=== PATIENT | female | born 1985 | race Caucasian/White ===

== ENCOUNTER 2016-08-20 17:52 | Observation (INO) ==
--- NOTE | 2016-08-20 18:39 | OB/GYN Progress Note ---
Date of Encounter: 08/20/16 Time of Encounter: 18:30 - Assessment and Plan (1) First in adolescent 16 years of age or older in third trimester Current Visit: Yes Status: Acute (2) 38 weeks gestation of Current Visit: Yes Status: Acute (3) False labor after 37 completed weeks of gestation Current Visit: Yes Status: Acute (4) Breech presentation Current Visit: Yes Status: Acute we will discharge home with labor precautions given. Follow-up for her scheduled in 1 week Qualifiers: Fetus number: single or unspecified fetus Qualified Code(s): O32.1XX0 - Maternal care for breech presentation, not applicable or unspecified Subjective - Subjective Interval history: Patient's is a 31-year-old 1 para 0 at 38-3/7 weeks who presented to labor and delivery with complaint of severe abdominal pain and contractions every 5-7 minutes. She had called me advise her to stay home until ligament uncomfortable. Patient was a scheduled section in 1 week due to transverse lie. Patient states the pain associated she went ahead and came on in. After arriving to labor and delivery her pain actually resolved and she was not feeling any contractions. heart tones were 140s reactive no contractions are seen on the monitor. On bimanual examination patient was noted to be fingertip but the presenting part was noted. Transabdominal ultrasound performed on the patient revealed the now to be in a breech presentation. All the pain the patient was having was probably the baby moving and reason why she is not having pain now she is not leaking any fluid denies any bleeding or vaginal discharge. Objective - Vital Signs Vital Signs: Intake and Output 08/20/16 08/20/16 08/20/16 07:59 15:59 23:59 Other: Weight 70 kg Patient Weight 08/20/16 23:59 Weight 70 kg - Exam FHR: category 1 FHR comments: heart tones 140s reactive no contraction seen Abdomen: Present: gravid Uterus: Present: firm Cervical dilation: fingertip Cervix effacement: 50 station: -3 Comments: Transabdominal ultrasound reveals the infant to be in a breech presentation
== END 2016-08-20 18:34 | disposition home or self-care (01) ==
LOC: 1NENULAB
PROVIDERS: ADMIT Obstetrics & Gynecology; ATTEND Obstetrics & Gynecology

== ENCOUNTER → 2016-08-22 20:12 | Observation (INO) ==
--- NOTE | 2016-08-22 19:51 | OB/GYN Progress Note ---
Date of Encounter: 08/22/16 Time of Encounter: 19:50 - Assessment and Plan (1) 38 weeks gestation of Current Visit: No Status: Acute (2) Breech presentation Current Visit: No Status: Acute Qualifiers: Fetus number: single or unspecified fetus Qualified Code(s): O32.1XX0 - Maternal care for breech presentation, not applicable or unspecified (3) First in adolescent 16 years of age or older in third trimester Current Visit: No Status: Acute Subjective - Subjective Interval history: Patient is a 31-year-old 1 para 0 at 38-5/7 weeks who presented to labor and delivery complaining of contractions. She has been justin since Monday this is her second visit in the last 3 days but this discomfort. Patient was transverse and is a scheduled at the end of the week. When she was here on Monday we did do a bedside ultrasound is now breech. Patient states she is unable to sleep because the pain is so intense she cannot tolerate it. Did try to reassure her last Monday that she will have some discomfort but she is not showing signs of labor. She did call a office today wanted to talk to her primary OB. He was out of town. She was reassured what she was feeling is normal but if things got more uncomfortable to come to the hospital. Patient wanted to be evaluated to came on in. Patient is showing no contractions at all on the monitor some irritability and she was fingertip thick and -3. We did have a long discussion and reassured her that what she is feeling is just the position of the baby and is normal. She was advised to try some Benadryl and Unisom to help her sleep and Tylenol for the pain. If she is still very uncomfortable tomorrow to call the office to see if she can see her primary OB at that time. Antepartum ROS: contractions Objective - Vital Signs Vital Signs: Intake and Output 08/22/16 08/22/16 08/22/16 07:59 15:59 23:59 Other: Weight 70.3 kg Patient Weight 08/22/16 23:59 Weight 70.3 kg - Exam FHR: category 1 FHR comments: heart tones 140s reactive, contractions not seen Abdomen: Present: gravid Uterus: Present: firm Cervical dilation: fingertip Cervix effacement: thick station: -3
== END | disposition home or self-care (01) ==
LOC: 1NENULAB
PROVIDERS: ADMIT Obstetrics & Gynecology; ATTEND Obstetrics & Gynecology

== ENCOUNTER 2016-08-26 08:10 | Inpatient (IN) ==
[2016-08-26] MEDS ORDERED: Ringers Solution, Lactated 1,000 ML ONE ×3 (08:31→09:14)
[2016-08-26 08:37] LABS: Basophils # 0.1 K/mcL (0.0-0.2); Basophils % 0.5 %; Eosinophils # 0.1 K/mcL (0.0-0.6); Hematocrit 36.3 % (35.3-44.9); Hemoglobin 11.8 g/dL (11.5-15.4); Immature Granulocytes % 1.7 % (0-4); Immature Platelets 3.3 % (1.1-6.1); Lymphocytes % 18.5 %; Mean Corpuscular HGB Conc 32.5 g/dL (31.6-35.5); Mean Corpuscular Hemoglobin 28.8 pg (28.0-33.3); Mean Corpuscular Volume 88.5 fL (83.0-100.0); Mean Platelet Volume 9.8 fL (9.4-12.4); Monocytes # 0.7 K/mcL (0.0-1.3); Monocytes % 6.2 %; Neutrophils # 7.8 K/mcL (1.6-8.9); Platelet Count 374 K/mcL (140-400); Red Cell Distribution Width 14.8 % (11.5-14.5); Segmented Neutrophils % 72.1 %
[2016-08-26] MEDS ORDERED: Dexamethasone 4 MG/ML VIAL ONE (09:11)
[2016-08-26] MEDS ORDERED: *HR* FentaNYL (PF) 100 MCG/2 ML VIAL ONE ×2 (09:11→09:32)
[2016-08-26] MEDS ORDERED: Lidocaine -MPF 2% 5 ML VIAL INFILT ONE (09:11)
[2016-08-26] MEDS ORDERED: *HR* Rocuronium Bromide 50 MG/5 ML VIAL ONE (09:11)
[2016-08-26] MEDS ORDERED: *HR* Propofol 200 MG/20 ML VIAL IVP ONE (09:11)
[2016-08-26] MEDS ORDERED: *HR* Succinylcholine 200 MG/10 ML VIAL IVP ONE (09:11)
[2016-08-26] MEDS ORDERED: Ondansetron 4 MG/2 ML VIAL ONE (09:11)
--- NOTE | 2016-08-26 09:16 | Anesthesia Evaluation PreOp ---
Date of Encounter: 08/26/16 Time of Encounter: 09:12 - Past History Planned Operation: Cardiac History: Denies any Significant Hx Pulmonary History: Denies Any Significant HX SERVICE COUNTER CASHIER History: Denies Any Significant HX Other Medical History: Denies Any Significant HX Anesthesia History: Past Anesthesia (no prior surgery) : Yes (. IUO 39+2 weeks) Alcohol Use: none Drug use: none Medications and Allergies Vit Calc,Iron,Folic [ Vitamins] 1 tab PO DAILY 08/22/16 [ History] Allergies sulfamethoxazole [From Bactrim] Allergy (Verified 08/22/16 18:53) Nausea trimethoprim [From Bactrim] Allergy (Verified 08/22/16 18:53) Nausea - Meds/Allergy Pre-op Review Medications Reviewed: Yes Allergies Reviewed: Yes Beta Blockers on Current Med List: No Anesthesia Results - Labs 08/26/16 08:21 Anesthesia Exam Height: 5'4'' Weight: 155 lbs NPO (# of Hours): 8 - HEENT Pupil (Motor): EOMI Mallampati: II Teeth: Normal Oral Opening: Greater than 3 - SERVICE COUNTER CASHIER LOC: Oriented SERVICE COUNTER CASHIER Motor: Normal RUE, Normal LUE, Normal RLE, Normal LLE, Normal Face SERVICE COUNTER CASHIER Sensory: Normal: RUE, LUE, RLE, LLE, Face - Cardiac Rhythm: Regular Murmur: None - Pulmonary Breath Sounds: bilateral Clear Respiratory Effort: Symmetrical Anesthesia Assess/Plan ASA Score: 2 Modified Mala Scale for Level of Consciousness: Cooperative, oriented, and tranquil Anesthetic Plan: General Monitoring Plan: Standard Monitors Recovery Plan: PACU
[2016-08-26] MEDS ORDERED: *HR* Morphine Sulfate/PF 5 MG/10 ML AMPUL ONE (09:48)
[2016-08-26] MEDS ORDERED: *HR* HYDROmorphone (PF) 1 MG/ML SYRINGE IVP PRN (09:48)
[2016-08-26] MEDS ORDERED: Ondansetron 4 MG/2 ML VIAL IVP ONE (09:48)
[2016-08-26] MEDS ORDERED: *HR* Morphine 10 MG/ML VIAL ONE (09:57)
--- NOTE | 2016-08-26 10:31 | OB/GYN History & Physical ---
Date of Encounter: 08/26/16 Time of Encounter: 09:00 Assessment and Plan (1) Intrauterine in , antepartum, single gestation Current visit: Yes Status: Acute Patient arrived in healthy condition at 08:00 for her scheduled 10:00 c- section. She felt movements last night. No vaginal discharge. No contractions felt. Nursing was unable to obtain heart tones on external monitor. Formal ultrasound was obtained confirming no heartbeat. Patient and preferred to go to operating room for for removal of their son; please refer to operative note. Obstetrics Ultrasound 08/26/16 08:26 IMPRESSION: Limited obstetrical ultrasound. Intrauterine demise with no heart beat. Dr. Kemp was present during the examination and was aware of the findings. The patient is to be taken directly to the operating room. D/ / 08/26/2016 09:48:21 Félix Moreno MD / dipti Interpreting Provider: Félix Moreno MD Review of patient visit 08/22/16: CC: pain and discomfort. heart tones 140s and reactive. No contractions on monitor. Cervical dilation fingertip, cervical effacement thick, station -3. Review of patient visit 08/20/16: CC: abdominal pain and reported contractions. No vaginal discharge. heart tones 140s and reactive. No contractions on monitor. Cervical dilateion fingertip. Trans abdominal ultrasound - karan breech presentation. (2) 39 weeks gestation of Current visit: Yes Status: Acute (3) Breech presentation Current visit: Yes Status: Acute Breech presentation per transabdominal ultrasound documented 08/20/16. Confirmed on formal ultrasound 08/26/16. Management: planned . Qualifiers: Fetus number: single or unspecified fetus Qualified Code(s): O32.1XX0 - Maternal care for breech presentation, not applicable or unspecified History of Present Illness Chief complaint: term , scheduled HPI: Ms. Fernandes is a 31 year old female presenting from home with CC: term with scheduled for 10:00. . 39w 2d. No reported contractions. No vaginal discharge. Patient reports movements last night. complications: Known karan breech presentation thus the reason for . OB: Dr. Kemp. Blood type: O+ GBS: (-) Rubella: immune HbSAG: Non-reactive - 02/28/17 T. Pallidum: (-) Varicella: (+) HIV: Non-reactive. DtAP 06/02/16 Flu 03/28/16 Past Med Surg Social Fam HX - Past Medical History Medical history: no medical history Psychiatric history: no psych history - Past Surgical History Surgical History: no surgical history - Social History Smoking Status: Never smoker Alcohol use: none Drug use: none - Family History Mother Adopted: No Living Status: Still Living Hx Family Cardiac Disorders: Yes (htn) Hx Family Respiratory Disorders: No Hx Family Cancer: No Hx Family GI Disorders: No Hx Family Endocrine Disorder: Yes Hx Family Neuromuscular Disorders: No Hx Family Neurologic Disorders: No Hx Family HEENT Disorders: No Hx Family Autoimmune Disorders: No Obstetrical History - Pregnancies : 1 Para: 0 Term: 0 : 0 Ab's: 0 Livin Medications and Allergies Vit Calc,Iron,Folic [ Vitamins] 1 tab PO DAILY 08/22/16 [ History] Allergies sulfamethoxazole [From Bactrim] Allergy (Verified 08/22/16 18:53) Nausea trimethoprim [From Bactrim] Allergy (Verified 08/22/16 18:53) Nausea Review of System OB All systems PM: reviewed and no additional remarkable complaints except as stated - Constitutional Constitutional ROS IM: as per HPI - Cardiovascular Cardiovascular: no edema - Genitourinary Genitourinary: as per HPI Exam - Constitutional Constitutional: well developed, well nourished, no acute distress, average body habitus - Neck Neck exam: normal inspection - Lungs Respiratory exam: CTAB - Cardiovascular Cardiovascular exam: RRR, +S1, +S2 - Abdomen Abdomen: Present: bowel sounds normal, gravid - Extremities Extremities exam: normal capillary refill, normal inspection Results Result Diagrams: 08/26/16 08:21 Abnormal lab results RDW 14.8 % (11.5-14.5) H 08/26/16 08:21 All other labs normal.
--- NOTE | 2016-08-26 10:41 | OB/GYN Procedure Note ---
Section - Date of procedure: 08/26/16 Preop diagnosis: breech, other (IUFD) Post-op diagnosis: same (plus tight nuchal cord times two) Procedure: primary low transverse Surgeon: Chauncey Kemp Estimated blood loss (cc): 300 Anesthesiologist: Mateo Minor Anesthesia Type: General section complications: none Disposition: L&D Recovery Room Specimens: Placenta - (s) A Infant Delivery Date: 08/26/16 Infant Delivery Time: 09:37 Presentation: karan breech Route of delivery: breech extraction Gender: Male Viability: Nonviable Pounds: 7 Ounces: 9 Placenta: complete extraction Cord: nuchal cord, 3 umbilical vessels - Narrative Narrative: Pt. present to Labor and Delivery this a.m. for scheduled Section at 39 weeks and two days due to breech presentation. On arrival, a bedside U/S was performed confirming a breech presentation. RN then tried to apply external monitors and could not find the heart beat. I then used the U/S to evaluate the heart and no cardiac activity was noted. Radiology was contacted for formal U/S which confirmed acardia. Pt. and family requested to proceed with immediate delivery. Pt reports last movement was last p.m. Denies any bleeding, loss of fluid, cramping, or contractions this a.m. Risks and procedure, consent with signature had been previously obtained. Procedure: Patient was taken to the operating room and placed in a supine position and a general anesthetic was administered. Skin was then prepped and draped in usual sterile fashion, and a timeout procedure was performed. A Pfannenstiel incision was performed and carried down through the fascial layer to the abdominal cavity was entered. A bladder flap was then gently created with sharp dissection. A low transverse uterine incision was then performed extended bilaterally with bandage scissors. The fetus was noted to be in a karan breech presentation. A nonviable male infant was delivered from a karan breech presentation. A tight nuchal cord 2 was present. The cord was clamped and cut and the was handed to the nursery team and subsequently examined by the medical typist. The placenta was then manually removed and will be sent to pathology. The uterine cavity was wiped clean with a wet lap sponge. The uterine incision was closed in a layered fashion with 0 Vicryl suture in a running locking fashion. Small areas of bleeding controlled with 0 Vicryl figure -of-eight sutures. Both tubes and ovaries were visualized with no abnormalities noted. The paracolic gutters were then gently wiped clean with a wet lap sponge. Once again examination of the pelvis noted good hemostasis. The fascial layer was then closed with 0 PDS stratafix suture in a running nonlocking fashion. The subcutaneous layer was irrigated with sterile water. The subcutaneous layer was then closed with 4-0 Vicryl suture in a running nonlocking fashion, continuing to close the skin edges in a running subcuticular fashion. A piece of Dermabond mesh was then applied over the incision site. Patient told procedure well, all sponge needle count reported as correct. Estimated blood loss was 300 mL and the urine in the Johnson catheter was clear and yellow. She was taken to recovery room in stable condition.
[2016-08-26] MEDS ORDERED: Oxytocin 20 units/ LR 1000 mL 20 UNIT/1,000 ML BAG IVC ONE (12:30)
[2016-08-26] MEDS ORDERED: Ketorolac 15 MG/ML VIAL IVP ONE (12:54)
[2016-08-26] MEDS ORDERED: Simethicone 80 MG TAB.CHEW PO PRN (14:10)
[2016-08-26] MEDS ORDERED: *HR* HYDROmorphone 20 MG/20 ML PCA IVC PRN (14:10)
[2016-08-26] MEDS ORDERED: Oxytocin 20 units/ LR 1000 mL 20 UNIT/1,000 ML BAG IV SCH (14:10)
[2016-08-26] MEDS ORDERED: Metoclopramide 10 MG/2 ML VIAL IVP PRN (14:10)
[2016-08-26] MEDS ORDERED: Sennosides 8.6 MG TABLET PO PRN (14:10)
[2016-08-26] MEDS ORDERED: Ondansetron 4 MG/2 ML VIAL IVP PRN (14:10)
[2016-08-26] MEDS: Ibuprofen 600 MG TABLET PO PRN (18:36)
[2016-08-26] MEDS: *HR* OxyCODONE/APAP 5/325 TABLET PO PRN (19:26)
[2016-08-27] MEDS ORDERED: Ringers Solution, Lactated 1,000 ML ONE (01:19)
[2016-08-27] MEDS ORDERED: Ketorolac 15 MG/ML VIAL IVP ONE (01:24)
[2016-08-27 04:24] LABS: Basophils # 0.1 K/mcL (0.0-0.2); Basophils % 0.3 %; Eosinophils # 0.1 K/mcL (0.0-0.6); Eosinophils % 0.5 %; Hematocrit 26.8 % (35.3-44.9); Lymphocytes % 13.2 %; Mean Corpuscular HGB Conc 33.2 g/dL (31.6-35.5); Mean Corpuscular Hemoglobin 29.1 pg (28.0-33.3); Mean Corpuscular Volume 87.6 fL (83.0-100.0); Mean Platelet Volume 9.2 fL (9.4-12.4); Monocytes % 6.7 %; Neutrophils # 12.1 K/mcL (1.6-8.9); Platelet Count 290 K/mcL (140-400); Red Blood Count 3.06 M/mcL (3.82-4.97); Red Cell Distribution Width 14.9 % (11.5-14.5); Segmented Neutrophils % 78.3 %
[2016-08-27 04:30] LABS: Hemoglobin 8.9 g/dL (11.5-15.4)
[2016-08-27] MEDS: *HR* OxyCODONE/APAP 5/325 TABLET PO PRN ×2 (06:47→14:37)
[2016-08-27] MEDS: Ibuprofen 600 MG TABLET PO PRN ×2 (10:35→20:39)
[2016-08-27] MEDS: Prenatal Vit/FA 1 EACH TABLET PO SCH (10:35)
--- NOTE | 2016-08-27 13:33 | OB/GYN Progress Note ---
Date of Encounter: 08/27/16 Time of Encounter: 13:34 - Assessment and Plan (1) S/P section Current Visit: Yes Status: Acute Mr. Fernandes and patient's parents are bedside. I spoke at length with the patient, her , and her parents. Sharing my personal experiences; allowing them to share, ask questions, and discuss. From a strictly physical medical perspective, patient is doing well post-op. (2) demise > 22 weeks, delivered, current hospitalization Current Visit: Yes Status: Acute as above Subjective - Subjective Principal diagnosis: s/p cesarian section Interval history: Mrs. Fernandes is sitting comfortably in bedside chair. She is eating well, ambulating well, no difficulties with urination. Has not had a bowel movement yet. Minimal vaginal bleeding. Mild abdominal pain, worse with valsalva. Well controlled with current medication regimen. Patient reports: appetite normal, voiding normally, pain well controlled, ambulating normally : Objective - Vital Signs Latest vital signs: Vital Signs Temp Pulse Resp BP Pulse Ox 08/27/16 08:16 98.8 F 94 16 101/65 98 08/27/16 03:35 98.6 F 88 16 89/60 97 08/27/16 02:00 87 91/58 97 08/27/16 01:03 92 16 93/52 97 08/27/16 00:10 86 16 98/64 96 08/26/16 23:55 98.6 F 91 16 88/59 97 08/26/16 23:40 98.9 F 85 16 90/61 97 08/26/16 21:40 99.3 F 08/26/16 19:40 99.9 F H 100 16 105/65 97 08/26/16 16:00 98.9 F 85 16 104/67 100 08/26/16 15:00 98.5 F 88 16 90/57 100 08/26/16 14:30 98.6 F 90 16 109/74 100 08/26/16 14:00 98.5 F 96 16 106/65 98 08/26/16 13:39 98.8 F 100 16 100/60 97 Intake and Output 08/26/16 08/27/16 08/27/16 23:59 07:59 15:59 Intake Total 903 / 903 1914 / 1914 400 / 400 Output Total 1000 / 1000 1999 700 / 700 Balance -97 / -97 -86 / -86 -300 / -300 Intake: IV Fluids 1614 / 1614 Lactated Ringers 1,000 ML 614 / 614 As .ROUTE .[facility] Rx#:[id number] Pitocin 20 unit In 1,000 1000 / 1000 ml @ 125 mls/hr IV .Q8H [facility] Rx#:[id number] Oral 400 / 400 300 / 300 400 / 400 Other 503 / 503 Output: Urine 700 / 700 Catheter 1000 / 1000 1999 Other: Stool Characteristics Normal for Patient - Exam Lungs: bilateral: normal Chest: Normal S1, Normal S2 Extremities: Present: normal Abdomen: Present: normal appearance, soft Incision: Present: normal, dry, warm, dressed Uterus: Present: firm - Labs Labs: Laboratory Results - last 24 hr 08/27/16 04:09 WBC 15.4 H RBC 3.06 L Hgb 8.9 L D Hct 26.8 L MCV 87.6 MCH 29.1 MCHC 33.2 RDW 14.9 H Plt Count 290 MPV 9.2 L Immature Gran % 1.0 Seg Neutrophils % 78.3 Lymphocytes % 13.2 Monocytes % 6.7 Eosinophils % 0.5 Basophils % 0.3 Neutrophils # 12.1 H Lymphocytes # 2.0 Monocytes # 1.0 Eosinophils # 0.1 Basophils # 0.1
[2016-08-28] MEDS: *HR* OxyCODONE/APAP 5/325 TABLET PO PRN ×2 (04:23→10:54)
[2016-08-28 05:02] LABS: Hematocrit 25.8 % (35.3-44.9); Hemoglobin 8.5 g/dL (11.5-15.4); Mean Corpuscular HGB Conc 32.9 g/dL (31.6-35.5); Mean Corpuscular Hemoglobin 29.3 pg (28.0-33.3); Mean Platelet Volume 9.5 fL (9.4-12.4); Platelet Count 292 K/mcL (140-400); Red Cell Distribution Width 15.2 % (11.5-14.5)
--- NOTE | 2016-08-28 09:49 | Discharge Summary ---
Date of Encounter: 08/28/16 Time of Encounter: 09:40 - Discharge Diagnosis (1) 39 weeks gestation of Priority: Secondary Status: Resolved (2) Breech presentation Priority: Secondary Status: Resolved Qualifiers: Fetus number: single or unspecified fetus Qualified Code(s): O32.1XX0 - Maternal care for breech presentation, not applicable or unspecified (3) demise > 22 weeks, delivered, current hospitalization Priority: Primary Status: Acute (4) S/P section Priority: Secondary Status: Acute (5) Anemia affecting in third trimester Priority: Secondary Status: Acute - Discharge Medications Prescriptions: Ibuprofen [Motrin] 600 mg PO Q6HR PRN #30 tablet PRN Reason: Cramping OxyCODONE/APAP 5/325 [Percocet 5/325 MG] 1 each PO Q6HR PRN #30 tablet PRN Reason: Moderate pain 4-6 Docusate [Colace] 100 mg PO BID #60 capsule Ferrous Sulfate 325 mg PO DAILY #30 tablet Home Medications: Vit Calc,Iron,Folic [ Vitamins] 1 tab PO DAILY 08/22/16 [ History] Docusate [Colace] 100 mg PO BID #60 capsule 08/28/16 [Rx] Ferrous Sulfate 325 mg PO DAILY #30 tablet 08/28/16 [Rx] Ibuprofen [Motrin] 600 mg PO Q6HR PRN #30 tablet 08/28/16 [Rx] OxyCODONE/APAP 5/325 [Percocet 5/325 MG] 1 each PO Q6HR PRN #30 tablet 08/28/16 [Rx] Allergies/Adverse Reactions: Allergies sulfamethoxazole [From Bactrim] Allergy (Verified 08/22/16 18:53) Nausea trimethoprim [From Bactrim] Allergy (Verified 08/22/16 18:53) Nausea Data Procedures and tests throughout hospitalization: Laboratory Tests 08/26/16 08/27/16 08/28/16 08:21 04:09 04:32 WBC 10.8 15.4 H 10.8 RBC 4.10 3.06 L 2.90 L Hgb 11.8 8.9 L D 8.5 L Hct 36.3 26.8 L 25.8 L MCV 88.5 87.6 89.0 MCH 28.8 29.1 29.3 MCHC 32.5 33.2 32.9 RDW 14.8 H 14.9 H 15.2 H Plt Count 374 290 292 MPV 9.8 9.2 L 9.5 Immature Gran % 1.7 1.0 Seg Neutrophils % 72.1 78.3 Lymphocytes % 18.5 13.2 Monocytes % 6.2 6.7 Eosinophils % 1.0 0.5 Basophils % 0.5 0.3 Neutrophils # 7.8 12.1 H Lymphocytes # 2.0 2.0 Monocytes # 0.7 1.0 Eosinophils # 0.1 0.1 Basophils # 0.1 0.1 Immature Plt Fraction 3.3 Labs on day of discharge: Labs from last 24 hours 08/28/16 04:32 WBC 10.8 RBC 2.90 L Hgb 8.5 L Hct 25.8 L MCV 89.0 MCH 29.3 MCHC 32.9 RDW 15.2 H Plt Count 292 MPV 9.5 - Impressions ITS Impressions Obstetrics Ultrasound 08/26/16 08:26 IMPRESSION: Limited obstetrical ultrasound. Intrauterine demise with no heart beat. Dr. Kemp was present during the examination and was aware of the findings. The patient is to be taken directly to the operating room. D/ / 08/26/2016 09:48:21 Félix Moreno MD / dipti Interpreting Provider: Félix Moreno MD Date of admission: 08/26/16 08:10 Primary care physician: PCP NO Discharging clinician: Chauncey Kemp Anticipated date of discharge: 08/28/16 - Patient Status Disposition: Home, Self-Care Condition: Good Functional capacity at discharge: independent ambulation Overall status at discharge: patient is progressing back to baseline - Discharge Instructions Follow Up With: Chauncey Kemp DO [Partnered Physician] - (September 12, 2016 @ 1:00 pm) - Diet and Activity Activity: increase activity as tolerated Diet: advance to your usual diet Hospital Course Reason for admission: section, IUP at term, other (Breech presentation) Delivery: section Episiotomy: none Laceration: none Other procedures: none complications: none Discharge diagnosis: IUP at term delivered, intrapartum demise baby: male Time Attestation: Total time spent providing and/or coordinating discharge services: Time Spent: Less than 30 minutes - VTE Documentation of Mechanical Device: Intermittent pneumatic compression device Exam - Constitutional Vitals: Temp Pulse Resp BP Pulse Ox 98.6 F 92 18 98/65 99 08/27/16 20:05 08/27/16 20:05 08/27/16 20:05 08/27/16 20:05 08/27/16 20:05 General appearance IM: A&O X 3, no acute distress - Respiratory Respiratory exam: Present: CTAB - Cardiovascular Cardiovascular exam IM: Present: RRR - GI/Abdominal GI/Abdominal exam IM: normal bowel sounds, soft Incision: normal, dry, intact - Uterine Tone: Firm Uterus Position: 2 Fingers Below Umbilicus - Extremities Exam Extremities exam IM: Absent: calf tenderness
[2016-08-28] MEDS: Prenatal Vit/FA 1 EACH TABLET PO SCH (10:54)
[2016-08-28 11:25] VITALS: BP 99/61
== END 2016-08-28 14:57 | disposition home or self-care (01) | DRG 765 ==
LOC: 1NENULAB 08:10 → EDSTATUS 09:45 → 1NENUPED 15:58